=== PATIENT | male | born 1980 | race Hispanic/Latino ===

== ENCOUNTER 2025-01-14 16:53 | Inpatient (IN) | payer SELFPAY ==
[~2025-01-14] VITALS: Ht 167.6 cm; Wt 94.3 kg
[2025-01-14] VITALS (14 sets, daily range): BP systolic 139–159; BP diastolic 106–114; PULSE 85–98; RESP 18–27; TEMP 98.5–98.9; O2SAT 92–98
[2025-01-14] MEDS ORDERED: ASPIRIN 81 MG CHEW TAB ONE (17:17)
[2025-01-14] MEDS ORDERED: Morphine 2mg Syringe 2 MG/ML SYR ONE (17:23)
[2025-01-14] MEDS ORDERED: NITROGLYCERIN/D5W 200 MCG/ML 250 ML ONE (17:24)
[2025-01-14] MEDS ORDERED: METOPROLOL TARTRATE INJ 1 MG/ML VIAL ONE (17:24)
[2025-01-14 17:26] LABS: BASOPHILS % 0.2 % (0.0-1.0); EOSINOPHILS % 0.0 % (0.0-6.0); LYMPHOCYTES % 11.1 % (18.0-39.1); MONOCYTES % 2.8 % (4.4-11.3); NEUTROPHILS % 85.5 % (38.7-80.0); RED CELL DISTRIBUTION WIDTH 13.7 % (11.7-14.4)
[2025-01-14 17:38] LABS: INR 0.93
[2025-01-14 17:46] LABS: EST GLOMERULAR FILTRATION RATE 112.0 ML/MIN (>=60)
[2025-01-14] MEDS: ONDANSETRON HCL INJ 2MG/ML 2ML 2 MG/ML VIAL IV STA (17:52)
[2025-01-14] MEDS: Morphine 2mg Syringe 2 MG/ML SYR IV STA (17:52)
[2025-01-14] MEDS: ASPIRIN 81 MG CHEW TAB PO ONE (17:53)
[2025-01-14] MEDS: SODIUM CHLORIDE 0.9% 1000ML 1,000 ML IV STA (17:53)
[2025-01-14] MEDS: CLOPIDOGREL BISULFATE 75 MG TAB PO ONE (17:53)
[2025-01-14] MEDS: METOPROLOL TARTRATE INJ 1 MG/ML VIAL IV ONE ×2 (17:54→20:46)
[2025-01-14] MEDS: NITROGLYCERIN/D5W 200 MCG/ML 250 ML IV SCH (17:55)
[2025-01-14] MEDS: MIDAZOLAM HCL 2 MG/2 ML VIAL ONE (19:27)
[2025-01-14] MEDS: FENTANYL CITRATE/PF 100MCG/2 ML INJ ONE (19:27)
[2025-01-14] MEDS: IOPAMIDOL 370 MG/ML 100 ML INFUS..BTL INJ ONE (19:28)
[2025-01-14] MEDS: LIDOCAINE HCL 1% LOCAL INJ 20 ML VIAL ONE (19:28)
[2025-01-14] MEDS: HEPARIN SOD/SOD CHLORIDE 2,000 ML ONE (19:28)
[2025-01-14] MEDS: METOPROLOL TARTRATE INJ 1 MG/ML VIAL ONE (19:28)
[2025-01-14] MEDS: HYDROCODONE/APAP 5MG-325MG TAB PO PRN (20:45)
[2025-01-15] VITALS (21 sets, daily range): BP systolic 120–173; BP diastolic 81–132; PULSE 77–88; RESP 16–30; TEMP 98–99.4; O2SAT 91–100
[2025-01-15] MEDS: SODIUM CHLORIDE 0.9% 1000ML 1,000 ML IV ONE (03:58)
[2025-01-15 06:48] LABS: BASOPHILS % 0.2 % (0.0-1.0); EOSINOPHILS % 0.0 % (0.0-6.0); LYMPHOCYTES % 11.9 % (18.0-39.1); MONOCYTES % 8.1 % (4.4-11.3); NEUTROPHILS % 79.5 % (38.7-80.0); RED CELL DISTRIBUTION WIDTH 14.0 % (11.7-14.4)
[2025-01-15 07:08] LABS: CHOL/HDL RATIO 4.3 (3.9-4.7); EST GLOMERULAR FILTRATION RATE 112.0 ML/MIN (>=60); LDL CHOLESTEROL 128.0 MG/DL (60-130)
[2025-01-15] MEDS: SACUBITRIL49MG/VALSARTAN51MG 1 EACH TABLET PO SCH (08:10)
[2025-01-15] MEDS: ATORVASTATIN 40 MG TAB PO SCH (08:10)
[2025-01-15] MEDS: CARVEDILOL 12.5 MG TAB PO SCH ×2 (08:11→16:26)
[2025-01-15] MEDS: ASPIRIN 81 MG CHEW TAB PO SCH (08:11)
[2025-01-15] MEDS: CLOPIDOGREL BISULFATE 75 MG TAB PO SCH (08:11)
[2025-01-15] MEDS: POTASSIUM CHLORIDE 20 MEQ TAB CR PO STA (08:48)
[2025-01-16 00:30] VITALS: BP 121/93; PULSE 65; RESP 22; O2SAT 97
[2025-01-16 08:00] VITALS: BP 142/98; PULSE 77; RESP 22; TEMP 98.3; O2SAT 96
[2025-01-16] MEDS: ATORVASTATIN 40 MG TAB PO SCH (08:24)
[2025-01-16 08:50] VITALS: BP 142/98; PULSE 77; RESP 22; TEMP 98.3; O2SAT 96
[2025-01-16 10:56] VITALS: BP 108/82; PULSE 68; RESP 25; TEMP 98.6; O2SAT 98
== END 2025-01-16 16:29 | disposition home or self-care (01) | DRG 321 ==
LOC: ER 17:13 → ERHOLD 17:16 → ICU 19:00
PROVIDERS: ADMIT Internal Medicine; ATTEND Internal Medicine
PROC: 027034Z Dilation of Coronary Artery, One Artery with Drug-eluting Intraluminal Device, Percutaneous Approach (ICD-10-PCS; principal; 2025-01-14)
PROC: 4A023N7 Measurement of Cardiac Sampling and Pressure, Left Heart, Percutaneous Approach (ICD-10-PCS; 2025-01-14)
PROC: B2111ZZ Fluoroscopy of Multiple Coronary Arteries using Low Osmolar Contrast (ICD-10-PCS; 2025-01-14)
DX: I21.09 ST elevation (STEMI) myocardial infarction involving other coronary artery of anterior wall (principal); I50.21 Acute systolic (congestive) heart failure; I24.9 Acute ischemic heart disease, unspecified; I11.0 Hypertensive heart disease with heart failure; E66.01 Morbid (severe) obesity due to excess calories; Z68.33 Body mass index [BMI] 33.0-33.9, adult; Z79.82 Long term (current) use of aspirin; Z79.02 Long term (current) use of antithrombotics/antiplatelets
CPT/HCPCS: 36415; 71045; 76937; 80053; 80061; 82550; 82948; 83036; 83735; 83880; 84443; 84484; 85025; 85610; 85730; 92928; 93005; 93306; 93458; 99152; 99153; 99284; C1725; C1760; C1769; C1874; C1887; C1894; J2003; J2250; J2270; J2405; J7030; Q9967